=== PATIENT | male | born 1985 | race Caucasian/White ===

== ENCOUNTER 2016-11-21 12:38 | Emergency (ER) | payer OTHER ==
[~2016-11-21] VITALS: Ht 165.1 cm; Wt 83.9 kg
[2016-11-21] MEDS ORDERED: FOLI1TAB2 PO (12:52)
[2016-11-21] MEDS ORDERED: ESOM0.1C PO (12:52)
[2016-11-21] MEDS ORDERED: AMIT10TA PO (12:52)
[2016-11-21] MEDS ORDERED: LAMO200T PO (12:52)
[2016-11-21] MEDS ORDERED: PROP60TA14 PO (12:59)
[2016-11-21 13:02] VITALS: BP 125/79
[2016-11-21] MEDS ORDERED: diphenhydrAMINE INJ 50MG/ML VIAL (J1200) IV STA (13:10)
[2016-11-21] MEDS ORDERED: METOCLOPRAMIDE INJ 10MG/2ML VIAL (J2765) IV ONE (13:15)
--- NOTE | 2016-11-21 13:44 | REP ---
Head CT without contrast: History: Trauma. Comparison study: No comparison study. CT findings: Bone window settings demonstrate an intact bony calvarium. There is no evidence of skull fracture or incidental bony calvarial lesion. The visualized paranasal sinuses appear clear. No intraorbital abnormality is seen. On soft tissue window setting images; the lateral, third, and fourth ventricles are normal in size and position. Tan-white differentiation pattern is normal above and below the tentorium. There are is no evidence of intracranial hemorrhage. No mass, edema, infarction, or midline shift is seen. No extra-axial fluid collection is appreciated. Impression: Negative noncontrast head CT. Signed by Rajan Givens MD 11/21/2016 01:35 P
[2016-11-21] MEDS ORDERED: KETOROLAC 30 MG/ML VIAL (J1885) IV ONE (13:45)
== END 2016-11-21 14:54 | disposition home or self-care (01) ==
LOC: EDBD 12:38 → M ED 14:42
DX: G43.909 Migraine, unspecified, not intractable, without status migrainosus (principal); Z87.820 Personal history of traumatic brain injury; Z79.899 Other long term (current) drug therapy
CPT/HCPCS: 70450; 96374; 96375; 99282; J1200; J1885; J2765